=== PATIENT | female | born 1945 | race Caucasian/White ===

== ENCOUNTER 2017-12-18 14:52 | Emergency (ER) | payer OTHER, MEDICARE ==
[~2017-12-18] VITALS: Ht 162.6 cm; Wt 72.6 kg
[~2017-12-18 14:52] MED LIST: ASPIRIN EC81 M1 PO; CALCIUM 600 +1 EAC7 PO; COLACE100 M1 PO; FLUTICASONE PRO16 GM NASB; POTASSIUM CHLO20 ME2 PO; PRAVASTATIN SOD40 M2 PO; SPECTRAVITE SE1 EACH PO; SYNTHROID75 MCG PO; TRIAMTERENE-HC1 EAC3 PO; VITAMIN C500 M6 PO; VITAMIN D2000 UNI1 PO; VITAMIN E400 UNI4 PO
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
--- NOTE | 2017-12-18 16:02 | RADIOLOGY REPORT ---
EXAMINATION: XR HAND, LEFT CLINICAL INFORMATION: Trauma. Swelling and pain. COMPARISON: None TECHNIQUE: PA, lateral, and oblique views of the left hand. FINDINGS: There is significant soft tissue swelling involving the dorsum of the left hand at the level of the head of the metacarpals. There is an associated slightly comminuted and slightly displaced fracture involving the base of the left fifth proximal phalanx. Otherwise no fracture or dislocation seen. IMPRESSION: 1. Significant soft tissue swelling. 2. Slightly comminuted displaced fracture involving the proximal phalanx of the left fifth finger.
[2017-12-18] MEDS ORDERED: TYLENOL WITH C1 EACH PO (16:34)
--- NOTE | 2017-12-18 16:51 | CT SCAN REPORT ---
EXAMINATION: CT HEAD CT CERVICAL SPINE CLINICAL INFORMATION: Head injury. Rule out fracture, hemorrhage. COMPARISON: None TECHNIQUE: CT head without contrast. CT cervical spine with sagittal coronal reconstructions. FINDINGS: CT HEAD: There is no evidence of acute intracranial hemorrhage or territorial infarction. No abnormal mass effect or midline shift is seen. Garza to white matter differentiation is well preserved. No extra-axial fluid collections are identified. No significant volume loss. No hydrocephalus. Mild patchy deep white matter hypodensities, most compatible with chronic microvascular ischemic changes. There is soft tissue swelling and hematoma in the left frontal region. No acute calvarial abnormality. The mastoid air cells and visualized portions of the paranasal sinuses are well aerated. CT CERVICAL SPINE: On the sagittal sequence, there is normal alignment. No subluxation. Predens space is maintained, with some hypertrophic changes present in this region. No acute fractures identified. Multilevel svyc-xx-evjssado disc degenerative changes present. This includes moderate degenerative changes at C4-C5, C5-C6, C6-C7. No compression deformities are seen. The posterior elements appear intact. There are multiple scattered lucencies in the visualized bones. These are nonspecific. This may be related to bone demineralization, but osseous lesions cannot be excluded. The left lobe of the thyroid gland is not clearly visualize, with surgical clips present in this region, suggesting prior surgery. There are ill-defined hypodensities in the right lobe of the thyroid gland. This has been evaluated on prior ultrasounds, latest 08/02/2017. Lung apices are clear without suspicious findings. IMPRESSION: 1. No CT evidence of acute intracranial pathology in the head. 2. Left frontal soft tissue swelling and hematoma. 3. No acute fracture or subluxation is demonstrated in the cervical spine. 4. Moderate cervical spondylosis as detailed above. 5. Multiple scattered lucencies are noted within the visualized bones of the cervical spine. This may be related to bone demineralization. However, osseous lesions cannot be excluded. Clinically correlate. Further evaluation with bone scan or MRI, can be obtained as clinically warranted. 6. Ill-defined hypodensities in the right lobe of the thyroid gland. This has been evaluated by ultrasound, 08/02/2017.
[2017-12-18 17:40] VITALS: BP 180/102
== END 2017-12-18 18:00 ==
LOC: ERH 14:52
DX: S62.617A Displaced fracture of proximal phalanx of left little finger, initial encounter for closed fracture (principal); S60.222A Contusion of left hand, initial encounter; S09.90XA Unspecified injury of head, initial encounter; I10 Essential (primary) hypertension; W19.XXXA Unspecified fall, initial encounter; Y92.9 Unspecified place or not applicable; Y93.01 Activity, walking, marching and hiking
CPT/HCPCS: 73130-LT; 90471; 90714